=== PATIENT | male | born 1990 | race Caucasian/White ===

== ENCOUNTER 2022-11-07 11:25 | Emergency (ER) | payer OTHER, SELFPAY ==
[2022-11-07 11:26] VITALS: BP 139/85; PULSE 68; RESP 13; TEMP 36.6; O2SAT 100
--- NOTE | 2022-11-07 11:33 | ECG_ITS ---
Measurements Intervals [place] Rate: 52 P: 37 UT: 141 QRS: 44 QRSD: 98 T: 37 QT: 394 QTc: 368 Interpretive Statements SINUS BRADYCARDIA NO PREVIOUS ECG AVAILABLE FOR COMPARISON Electronically Signed On 11-07-2022 11:39:41 CDT by Raymon Castillo MD
[2022-11-07 11:43] VITALS: PULSE 68
[2022-11-07 11:44] VITALS: O2SAT 98
--- NOTE | 2022-11-07 11:48 | ED.GENADULT ---
HPI - General Adult General Chief complaint: Seizure Stated complaint: seizure? Time Seen by Provider: 11/07/22 11:48 Source: patient and EMS Mode of arrival: other ([facility] staff) History of Present Illness HPI narrative: 32 years old white male brought to the emergency room by ambulance from [facility] because of an unresponsive.. The nurse went see the patient and was sleeping, breathing normally, not responding to her verbal commands, they are not allowed to touch the patient. 911 was called to bring the patient to the ED. On arrival to the ED patient is awake, alert oriented x3, does not know the name of the president. Patient is telling me that he suicidal thoughts and was admitted to [facility] 3 days ago for help but did not have any medication to help him because he had some medicine 2 days prior to his admission prescribed by his family physician and did not bring it with him. And chest not unable to get him new medication because of insurance issues. Patient is not happy about that, is telling me that he been sitting there eating and drinking and laying down in bed without any medication and is still have suicidal thoughts. After talking to Lupe, the chief nurse at [facility] she reports that probably she is planning to call the nurse practitioner on-call to get him some help.. Patient denies any fever, chills, nausea, vomiting, chest pain, shortness of breath, headache, abdominal pain. Patient does not have a plan. Related Data Allergies Allergy/AdvReac Type Severity Reaction Status Date / Time tramadol Allergy Nausea and Verified 11/07/22 12:14 Vomiting Review of Systems Review of Systems: All systems reviewed & are unremarkable except as noted in HPI and below Exam Narrative: General appearance: Well-developed, well-nourished Skin: Normal color Head: Normocephalic, nontraumatic Eyes: Clear conjunctiva ENT: Oropharynx normal, ears normal, nose normal Neck: Supple, nontender Chest and respiratory: Airway patent, no respiratory distress, no accessory muscle use Heart: Regular rate/rhythm Abdomen: Soft, nontender, no organomegaly, quiet bowel sounds Vascular: Normal peripheral pulses, normal capillary refill. Musculoskeletal: Normal range of motion, nontender back Neurologic: Alert and oriented ?3, [employer] is normal as tested, no gross motor deficit Course Vital Signs Vital signs: Vital Signs Temperature 36.6 C 11/07/22 11:26 Pulse Rate 68 11/07/22 11:26 Respiratory Rate 13 11/07/22 11:26 Blood Pressure 139/85 11/07/22 11:26 Pulse Oximetry 100 11/07/22 11:26 Oxygen Delivery Room Air 11/07/22 11:26 Temperature 36.6 C 11/07/22 11:26 Pulse Rate 68 11/07/22 13:50 Respiratory Rate 17 11/07/22 13:50 Blood Pressure 116/70 11/07/22 13:50 Pulse Oximetry 99 11/07/22 13:50 Oxygen Delivery Room Air 11/07/22 11:44 Medical Decision Making MDM Narrative Medical decision making narrative: 32 years old white male came from [facility] because unresponsive to verbal commands but was breathing, with normal vital signs. Ambulance arrived, patient was awake, alert oriented x3, on arrival to the ED patient is awake, alert oriented x3. Does not know the name of the president. Patient is telling me that he is having suicidal ideation, and been hospitalized and adjustment for 3 days without any medical intervention. Patient denies any fever, chills, nausea, vomiting, headache, chest pain or shortness of breath. Patient stated me that he heard the staff calling his name but he does not want to answer because he is very mad and distressed because not receiving any medication until now. Physical examination sh
[2022-11-07 12:21] LABS: Eosinophils Percent Auto 1.4 % (0-4.4); Hematocrit 41.8 % (42.0-52.0); Hemoglobin 13.8 g/dL (14.0-18.0); Immature Granulocyte Percent A 1.3 % (0-0.5); Lymphocytes Percent Auto 27.4 % (18.3-44.2); Mean Corpuscular Volume 90.9 fl (80-100); Mean Platelet Volume 9.9 fl (7.4-10.4); Monocytes Percent Auto 11.3 % (2.6-8.5); Neutrophils Percent Auto 58.1 % (45.5-73.1); Platelet Count Result 244 k/mm3 (150-375); Red Cell Distribution Width 13.2 % (11.5-14.5); White Blood Count 7.7 K/mm3 (4.5-10.0)
[2022-11-07 12:22] LABS: Basophils Percent Auto 0.5 % (0.2-1.2); Eosinophils Absolute Auto 0.1 K/mm3 (0-0.3); Lymphocytes Absolute Auto 2.11 K/mm3 (0.9-3.2); Monocytes Absolute Auto 0.9 K/mm3 (0.1-0.6); Neutrophils Absolute Auto 4.5 K/mm3 (1.3-6.7)
[2022-11-07 12:44] LABS: Anion Gap 2 mmol/L (8-16); Blood Urea Nitrogen 10 mg/dL (9-20); Carbon Dioxide 31 mmol/L (22-30); Chloride 105 mmol/L (98-107); Potassium 4.5 mmol/L (3.4-5.0); Sodium 138 mmol/L (137-145)
[2022-11-07 12:45] LABS: Alanine Aminotransferase 23 U/L (6-50); Alkaline Phosphatase 56 U/L (38-126); Aspartate Amino Transferase 33 U/L (17-59); Bilirubin,Total 0.3 mg/dL (0.2-1.3); Estimated Glomerular Filt Rate > 60; Glucose 74 mg/dL (65-110)
[2022-11-07 13:50] VITALS: BP 116/70; PULSE 68; RESP 17; O2SAT 99
== END 2022-11-07 14:05 ==
PROVIDERS: Emergency Provider Emergency Medicine
DX: R45.851 Suicidal ideations (principal); F33.9 Major depressive disorder, recurrent, unspecified
CPT/HCPCS: 36415; 80053; 85025; 93005; 99285